=== PATIENT | male | born 1990 | race Asian ===

== ENCOUNTER 2023-11-12 11:55 | Emergency (ER) | payer OTHER, SELFPAY ==
[2023-11-12 12:01] VITALS: BP 117/76
[2023-11-12 12:19] LABS: % Basophils 0.2 % (0-2); % Eosinophils 0.2 % (0-6); % Immature Granulocytes 0.3 % (0-0.5); % Lymphocytes 16.9 % (20.5-51.1); % Monocytes 4.5 % (1.7-9.3); % Neutrophils 77.9 % (42.2-75.2); Absolute Lymphocytes 1.1 10^3/uL (1.2-3.4); Absolute Monocytes 0.3 10^3/uL (0.1-0.6); Absolute Neutrophils 5.2 10^3/uL (1.4-6.5); Hematocrit 38.9 % (39.0-52.0); Hemoglobin 13.1 g/dL (13.0-18.0); Mean Corp Hgb Conc. 33.7 g/dL (33.0-37.0); Mean Corpuscular Volume 83.1 fL (80.0-94.0); Mean Platelet Volume 9.4 fL (7.4-10.4); Nucleated Red Blood Cells % 0 % (-); Platelet Count 165 10^3/uL (130-400); Red Blood Cell Count 4.68 10^6/uL (4.70-6.10); White Blood Cell Count 6.6 10^3/uL (4.8-10.8)
[2023-11-12 12:39] LABS: ALT (SGPT) 18 U/L (0-50); AST (SGOT) 31 U/L (17-59); Albumin 4.3 g/dl (3.5-5.0); Alkaline Phosphatase 59 U/L (38-126); Blood Urea Nitrogen 12 mg/dl (9-20); Calcium 8.6 mg/dl (8.4-10.2); Carbon Dioxide 28 mmol/L (22-30); Chloride 104 mmol/L (98-107); Glucose 113 mg/dl (70-99); Lipase 106 U/L (23-300); Potassium 3.7 mmol/L (3.5-5.1); Sodium 136 mmol/L (135-145); Total Bilirubin 0.6 mg/dl (0.2-1.3); Total Protein 7.3 g/dl (6.3-8.2); eGFR > 60.00
[2023-11-12 12:48] LABS: COVID-19 Antigen Negative (Negative)
[2023-11-12 12:50] VITALS: BMI 19.8
[2023-11-12 12:52] VITALS: BP 130/88
[2023-11-12 13:00] VITALS: BP 127/78
--- NOTE | 2023-11-12 13:28 | ED.GENMED ---
History of Present Illness
General
Chief Complaint: Cough
Source: patient
Exam Limitations: none
Time Seen by Provider: 11/12/23 13:19
Nursing documentation reviewed up to this point in time: agreed with
Travel History
Have you had any contact with someone who has COVID-19?: No
Do you have any symptoms of coronavirus? Fever > 100 degrees, chills, cough, shortness of breath, sore throat, loss of taste or smell, muscle aches, or headache?: No
History of Present Illness
History of Present Illness:
33 yo male presents to the emergency department c/o coughing since Monday. He is intermittent chest ache when he coughs. He states he had a fever 101.
Past History
Past History
ED Past Medical History: None
ED Past Surgical History: None
Social History
Tobacco: Non-smoker
Alcohol: None
Drug: None
Personal:
Living: with family
Review of Systems
Review of Systems
Constitutional: Reports fever
EENT: Reports no symptoms
Respiratory: Reports cough
Cardiac: Reports no symptoms
ABD/GI: Reports no symptoms
: Reports no symptoms
Musculoskeletal: Reports no symptoms
Skin: Reports no symptoms
Neurological: Reports no symptoms
Endocrine: Reports no symptoms
Hematologic/Lymphatic: Reports no symptoms
Phy Exam
Physical Exam
Physical Exam:
Physical Exam
General: no apparent distress, not acutely ill
Neck: supple. no meningeal signs. normal posterior pharynx
Heart: s1/s2 regular rate and rhythm, no murmur. equal radial
pulses.
HEENT: Pupils equal round reactive to light, EOMI
Lungs: no acute respiratory distress. clear bilaterally, cough
Abdomen: normal bowel sounds. not tender. no CVAT
Neuro: alert and oriented. no focal neurological deficits cranial nerves II through XII intact
Skin: no rash
Psychiatric: well kept. interactive and cooperative
Extremities: no edema. no calf tenderness. negative homans. good distal pulses
Course
Orders/Labs/Results
Orders:
Orders
11/12/23 12:09
COVID-19 Antigen Urgent
Source: Nasal Swab
Complete Blood Count/With Diff Urgent
Comprehensive Metabolic Panel Urgent
Lipase Urgent
Influenza A+B Rapid Molecular Urgent
TONE Source: Nasal Swab
Specimen Description:
11/12/23 13:28
CR Chest - 2 Views Urgent
Comment:
Reason For Exam: productive cough
Abnormal Lab Results
11/12/23
12:09
RBC 4.68 L 10^6/uL
(4.70-6.10)
Hct 38.9 L %
(39.0-52.0)
Absolute Lymphs (auto) 1.1 L 10^3/uL
(1.2-3.4)
Neutrophils % 77.9 H %
(42.2-75.2)
Lymphocytes % 16.9 L %
(20.5-51.1)
Glucose 113 H mg/dl
(70-99)
11/12/23 12:09
11/12/23 12:09
Vital Signs
Initial and Last Documented VS:
Initial Vital Signs
Temp Pulse Resp BP Pulse Ox
98.2 F 82 18 117/76 98
11/12/23 12:01 11/12/23 12:01 11/12/23 12:01 11/12/23 12:01 11/12/23 12:01
Last Documented Vital Signs
Temp Pulse Resp BP Pulse Ox
98.2 F 67 26 127/78 98
11/12/23 12:01 11/12/23 13:15 11/12/23 13:15 11/12/23 13:00 11/12/23 13:15
MDM/Problems Addressed
Differential Diagnosis Includes:
Pneumonia, bronchitis
MDM/Problems Addressed:
33-year-old male with bronchitis. No signs of pneumonia, abdomen exam benign. Stable for discharge. Treat with albuterol.
*Radiology
Radiology exam reviewed: preliminary read by ED provider (Chest x-ray no acute findings)
*Pulse Oximetry
Patient hypoxic: no
*EKG
Interpreted by ED Provider?: NA
*Food Safety Scientist Interpretation
Rate: Food Safety Scientist- N/A
*Critical Care Note
Total Time (30-74mins, 75-104mins- exclusive of procedures): Not Applicable
Patient Management
Social determinants of health affecting care: Living situation and Strong social support
Escalation/DeEscalation of care consider admission/obs:
Admit not indicated
ED Attending Note
-
Portions of this chart may have been created with voice recognition software.� Occasional wrong word or��sound alike� substitutions may have occurred due to the inherent limitations of voice recognition software.
Discharge Plan
Departure
Patient Disposition: Home (Routine Discharge)
Date of Disposition: 11/12/23
Time of Disposition: 13:57
Patient with high blood pressure during this ER visit?: Yes
Condition: Good
Discharge Problem:
Acute bronchitis
Instructions: Acute Bronchitis, Adult (DC)
Prescriptions:
New
albuterol sulfate 90 mcg/actuation aerosol powdr breath activated
2 inh inhalation Q4H PRN (Reason: shortness of breath or wheezing) Qty: 1 0RF
Referrals:
NONE,* [Family Provider] -
Interventions
Interventions:
*Risk Screen - Suicide Last Done: 11/12/23 12:50
*General Assessment Last Done: 11/12/23 12:50
*Neglect/Abuse Screening Last Done: 11/12/23 12:50
ED- Fall Risk Assessment Last Done: 11/12/23 13:25
*ED COVID-19 Vaccine History Last Done: 11/12/23 12:50
ED- Pulmonary Assessment Last Done: 11/12/23 12:50
== END 2023-11-12 14:14 | disposition home or self-care (01) ==
LOC: EMR 11:55
PROVIDERS: EMERGENCY PHYSICIAN Emergency Medicine
DX: J20.9 Acute bronchitis, unspecified (principal); R03.0 Elevated blood-pressure reading, without diagnosis of hypertension; Z11.52 Encounter for screening for COVID-19
CPT/HCPCS: 99283; 71046; 80053; 83690; 85025; 87502; 87811

== ENCOUNTER 2025-05-26 10:25 | Emergency (ER) | payer OTHER, SELFPAY ==
[2025-05-26 10:32] VITALS: BP 119/79
[2025-05-26 11:12] LABS: Hematocrit 38.5 % (39.0-52.0); Hemoglobin 12.7 g/dL (13.0-18.0); Mean Corp Hgb Conc. 33.0 g/dL (33.0-37.0); Mean Corpuscular Volume 82.1 fL (80.0-94.0); Platelet Count 126 10^3/uL (130-400); Red Cell Dist. Width 12.0 % (11.5-14.5)
[2025-05-26 11:14] LABS: ALT (SGPT) 34 U/L (0-50); AST (SGOT) 38 U/L (17-59); Albumin 4.5 g/dl (3.5-5.0); Alkaline Phosphatase 74 U/L (38-126); Blood Urea Nitrogen 10 mg/dl (9-20); Calcium 9.2 mg/dl (8.4-10.2); Carbon Dioxide 28 mmol/L (22-30); Chloride 102 mmol/L (98-107); Glucose 121 mg/dl (70-99); Potassium 4.6 mmol/L (3.5-5.1); Sodium 137 mmol/L (135-145); Total Protein 7.9 g/dl (6.3-8.2); eGFR > 60.00
[2025-05-26 11:49] LABS: Nucleated Red Blood Cells % 0 % (-)
--- NOTE | 2025-05-26 12:19 | ED.GENMED ---
History of Present Illness
General
Chief Complaint: Abdominal Symptoms
Source: patient
Exam Limitations: none
Time Seen by Provider: 05/26/25 12:03
History of Present Illness
History of Present Illness:
34-year-old male presents with 4 days worth of mid abdominal pain chills diffuse bodyaches. Anytime he eats anything of substance he get more abdominal pain and his states that he turns yellow. He has been losing weight. He also has been
dealing with constipation. He has a remote history of H. pylori. His is concerned he may have this again. There has been no vomiting. No chest pain or shortness of breath. He notes fatigue. No known rashes or tick bites. He has been
using Tylenol for fever and pain. Temperature last night was 100.4
Past History
Past History
ED Past Medical History: None
ED Past Surgical History: None
Social History
Tobacco: Non-smoker
Alcohol: None
Drug: None
Personal:
Living: with family
Phy Exam
Physical Exam
Physical Exam:
General: Well-appearing male no acute respiratory distress
HEENT: Normocephalic atraumatic sclera anicteric
Heart: Regular rate and rhythm
Lungs: Clear no wheeze
Abdomen soft tender in the mid and right upper quadrant. No guarding or rebound normal bowel sounds nondistended
Skin is warm no rash
Extremities: No cyanosis or edema
Course
Orders/Labs/Results
Orders:
Orders
05/26/25 10:37
Electrocardiogram (*1) Urgent
Reason for Study: Abdominal Pain
EKG- Treatment ONCE
05/26/25 10:43
CMP [Comprehensive Metabolic Panel] Urgent
Complete Blood Count/With Diff Urgent
Creatine Phosphokinase Urgent
Comment: ADD ON
Lipase Urgent
Comment: ADD ON
Lyme Progressive Urgent
Comment: ADD ON
05/26/25 12:14
Add On- LAB Urgent
Tests Added?: lipase, lyme progressive, cpk
0.9% Sodium Chloride 1000 ml [Nss] 1,000 ml IV BOLUS
US Abdomen Complete/Upper Urgent
Comment:
Reason For Exam: ruq pain
05/26/25 14:26
CT Abd/pelvis W Iv Cont Urgent
Comment:
Reason For Exam: abdominal pain,
05/26/25 15:56
H. pylori Antigen, Fecal [S] Urgent
STOOL [C difficile Antigen & Toxins] Urgent
TONE Source: Feces/Stool
Specimen Description:
Date Specimen was Collected: 05/26/25
Time Specimen was Collected: 15:51
Stool Culture Urgent
TONE Source: Feces/Stool
Specimen Description:
Date Specimen was Collected: 05/26/25
Time Specimen was Collected: 15:51
Abnormal Lab Results
05/26/25
10:43
WBC 3.4 L 10^3/uL
(4.8-10.8)
RBC 4.69 L 10^6/uL
(4.70-6.10)
Hgb 12.7 L g/dL
(13.0-18.0)
Hct 38.5 L %
(39.0-52.0)
Plt Count 126 L 10^3/uL
(130-400)
Monocytes % 12.5 H %
(1.7-9.3)
Glucose 121 H mg/dl
(70-99)
Creatine Kinase 38 L U/L
(55-170)
05/26/25 10:43
05/26/25 10:43
Vital Signs
Initial and Last Documented VS:
Initial Vital Signs
Temp Pulse Resp BP Pulse Ox
98.5 F 71 20 119/79 99
05/26/25 10:32 05/26/25 10:32 05/26/25 10:32 05/26/25 10:32 05/26/25 10:32
Last Documented Vital Signs
Temp Pulse Resp BP Pulse Ox
98.5 F 62 16 121/71 97
05/26/25 10:32 05/26/25 15:25 05/26/25 15:25 05/26/25 15:25 05/26/25 15:25
MDM/Problems Addressed
Differential Diagnosis Includes:
Patient with fever, body aches and abdominal pain fatigue. Consider viral illness versus gastritis versus biliary colic versus cholecystitis. He notes diffuse muscle pain as well. Will check CPK. Fluids ordered. Will start with ultrasound if
unrevealing consider CT scan
*Pulse Oximetry
SaO2: 99
Oxygen Mode of Delivery: Room air
Patient hypoxic: no
*Critical Care Note
Total Time (30-74mins, 75-104mins- exclusive of procedures): Not Applicable
Update Note
Update Note:
Patient reevaluated. Color appears better after administration of IV fluids. Ultrasound shows biliary sludge but no signs of cholecystitis. This was followed by CT of the abdomen which shows small bowel thickening to suggest enteritis.
Clinically this does match. Stool cultures are pending. Advise clear liquid diet brat diet and follow-up with GI as he says some of the symptoms are intermittent over some time. No indication for admission.
ED Attending Note
-
Portions of this chart may have been created with voice recognition software.� Occasional wrong word or��sound alike� substitutions may have occurred due to the inherent limitations of voice recognition software.
Discharge Plan
Departure
Patient Disposition: Home (Routine Discharge)
Date of Disposition: 05/26/25
Time of Disposition: 18:26
Patient with high blood pressure during this ER visit?: No
Discharge Problem:
Enteritis
Instructions: Clear Liquid Diet
Prescriptions:
New
sucralfate [Carafate] 1 gram tablet
1 g PO ACHS Qty: 14 0RF
No Action
albuterol sulfate 90 mcg/actuation aerosol powdr breath activated
2 inh inhalation Q4H PRN (Reason: shortness of breath or wheezing) Qty: 1 0RF
Referrals:
Elfego Ortega MD [Active, Gastroenterology]
NONE,* [Family Provider, Internal Medicine]
Activity Restrictions/Additional Instructions:
Drink plenty of clear liquids. Advance diet to bland diet as discussed. Follow-up with GI team. Return if worse otherwise.
Interventions
Interventions:
*Risk Screen - Suicide Last Done: 05/26/25 10:32
*General Assessment Last Done: 05/26/25 13:29
*Neglect/Abuse Screening Last Done: 05/26/25 10:32
*ED- Fall Risk Assessment Last Done: 05/26/25 13:29
*ED COVID-19 Vaccine History Last Done: 05/26/25 13:29
DB-Vezqew-Kjknowscmd Assessment Last Done: 05/26/25 13:29
Discharge Date and Time
Print Language: MACEDONIAN
[2025-05-26 13:03] VITALS: BMI 22.6
[2025-05-26 13:06] LABS: Lipase 75 U/L (23-300)
[2025-05-26] MEDS: NSS 1000 IV (13:16)
[2025-05-26 15:25] VITALS: BP 121/71
[2025-05-26 18:44] VITALS: BP 119/77
[2025-05-27 13:53] LABS: Lyme Antibody Screen, EIA Presump. Positive (Negative)
[2025-05-28 23:06] LABS: H. pylori Antigen, Fecal Negative (Negative)
== END 2025-05-26 19:06 | disposition home or self-care (01) ==
LOC: EMR 10:25
PROVIDERS: Physician Assistant; EMERGENCY PHYSICIAN Emergency Medicine
DX: K52.9 Noninfective gastroenteritis and colitis, unspecified (principal); K82.8 Other specified diseases of gallbladder; Z86.19 Personal history of other infectious and parasitic diseases
CPT/HCPCS: 99284; 74177; 76700; 80053; 82550; 83690; 85025; 86617; 86618; 87045; 87046; 87324; 87338; 87427; 87449; 93005; Q9967